=== PATIENT | female | born 1965 | race Hispanic/Latino ===

== ENCOUNTER 2017-12-10 01:53 | Day surgery (SDC) | payer OTHER ==
--- NOTE | 2017-12-10 02:33 | C.PDOC ---
History Of Present Illness 52 year old female presents to the ER with a complaint of left shoulder pain after she tripped and fell at approximately 21:00, landing on her left shoulder. Patient states she is currently unable to move the shoulder and feels some numbness to the left shoulder. Patient has been NPO since 14:00, patient did not take any meds [employer] and has no PMD. Patient denies any other injuries. Time Seen by Provider: 12/10/17 02:05 Chief Complaint (Nursing): Upper Extremity Problem/Injury History Per: Patient History/Exam Limitations: no limitations Onset/Duration Of Symptoms: Hrs Current Symptoms Are (Timing): Still Present Exacerbating Factor(s): Movement Recent travel outside of the [place]: No Past Medical History Reviewed: Historical Data, Nursing Documentation, Vital Signs Vital Signs: Last Vital Signs Temp 97 F L 12/10/17 06:56 Pulse 78 12/10/17 06:56 Resp 20 12/10/17 06:56 BP 134/83 12/10/17 06:56 Pulse Ox 100 12/10/17 06:56 Family History: States: Unknown Family Hx - Social History Hx Alcohol Use: Yes Hx Substance Use: No - Immunization History Hx Tetanus Toxoid Vaccination: No Hx Influenza Vaccination: No Hx Pneumococcal Vaccination: No Review Of Systems Except As Marked, All Systems Reviewed And Found Negative. Musculoskeletal: Positive for: Shoulder Pain Neurological: Positive for: Numbness Physical Exam - Physical Exam Appears: Non-toxic Skin: Normal Color, Warm, Dry, Other (Intact, No tenting) Head: Atraumatic, Normacephalic Eye(s): bilateral: Normal Inspection Oral Mucosa: Moist Chest: Symmetrical, No Tenderness Cardiovascular: Rhythm Regular Respiratory: Normal Breath Sounds, No Accessory Muscle Use Gastrointestinal/Abdominal: Soft, No Tenderness Extremity: Other (Flattening over left deltoid with internal rotation) Pulses: Left Radial: Normal, Right Radial: Normal Neurological/Psych: Oriented x3, Normal Speech ED Course And Treatment - Laboratory Results Result Diagrams: 12/10/17 03:44 12/10/17 03:44 ECG: Interpreted By Me ECG Rhythm: Sinus Rhythm Rate From EC O2 Sat by Pulse Oximetry: 99 (Room air) Pulse Ox Interpretation: Normal - Other Rad L SHOULDER X-Ray: Interpreted by Me (FX DISLOCATION) L HUMERUS X-Ray: Interpreted by Me (HUMERAL HEAD FX) - CT Scan/US L SHOULDER Other Rad Studies (CT/US): Radiology Report Reviewed (D/W [facility] ) Progress - Re-Evaluation Re-evaluation Note: 12/10/17 03:[address] LAIRD [employer]O [employer] S[facility]CE 25212/10/17 04:[address] LAIRD MULTIPLE MSGS W ANSWERING SERVICE 12/10/17 05:[address] LAIRD 12/10/17 05:33 D/W DR ALBERTO TRAUMA @ [facility]: REJECTS PT FOR TRANSFER, STATES TO SEND TO NEAREST TRAUMA CTR D/W [facility], REFUSING TRANSFER DUE TO CONCERN FOR EMTALA VIOLATION D/W DR TRINH WILL CONTACT DR MYERS 12/10/17 06:08 D/W DR LAIRD AWARE OF ER FINDINGS WILL REVIEW XRAY - Data Reviewed Data Reviewed: Diagnostic imaging, Old records - Continuity of Care Discussed patient case with:: Patient Medical Decision Making Medical Decision Making: Plan: * Left Humerus x-ray * Left shoulder x-ray * Morphine * Zofran Disposition Counseled Patient/Family Regarding: Studies Performed, Diagnosis - Disposition Disposition Time: 19:00 Condition: STABLE Forms: Vibes (Colombian) - POA Present On Arrival: Falls Or Trauma - Clinical Impression Clinical Impression: Shoulder fracture, Shoulder dislocation - Scribe Statement The provider has reviewed the documentation as recorded by the Scribe Emir Chao All medical record entries made by the Scribe were at my direction and personally dictated by me. I have reviewed the chart and agree that the record accurately reflects my personal performance of the history, physical exam, medical decision making, and the department course for this patient. I have also personally directed, reviewed, and agree with the discharge instructions and disposition. Physician Patient Turnover Patient Signed Over To: Chana Kim Handoff Comments: CONSCIOUS SEDATION W DR LAIRD FOR DISLOCATION FRACTURE, DISPO
[2017-12-10 03:48] LABS: BASO # 0.1 K/uL (0.0-0.2); BASO % 0.2 % (0.0-2.0); HEMOGLOBIN 14.1 g/dL (11.0-16.0); LYMPH # 1.1 K/uL (1.0-4.3); LYMPH % 5.2 % (20.0-40.0); MEAN CELL VOLUME 99.4 fL (81.0-99.0); MEAN CORPUSCULAR HEMOGLOBIN 34.6 pg (27.0-31.0); MEAN CORPUSCULAR HGB CONC 34.8 g/dL (33.0-37.0); MEAN PLATELET VOLUME 9.3 fL (7.2-11.7); MONO # 0.3 K/uL (0.0-0.8); MONO % 1.7 % (0.0-10.0); NEUT # 19.3 K/uL (1.8-7.0); NEUT % 92.9 % (50.0-75.0); PLATELET COUNT 426 K/uL (130-400); RBC 4.07 Mil/uL (3.80-5.20); RED CELL DISTRIBUTION WIDTH 13.2 % (11.5-14.5); WHITE BLOOD COUNT 20.8 K/uL (4.8-10.8)
[2017-12-10 03:59] LABS: PROTHROMBIN TIME 10.8 SECONDS (9.7-12.2)
[2017-12-10 04:03] LABS: CALCIUM 8.8 mg/dl (8.6-10.4); GFR AFRICAN-AMERICAN > 60; GFR NON-AFRICAN AMERICAN > 60
[2017-12-10 04:18] LABS: ALB/GLOB RATIO 1.2 (1.0-2.1); ALBUMIN 4.7 g/dL (3.5-5.0); ALT/SGPT 15 U/L (9-52); AST/SGOT 35 U/L (14-36); BLOOD UREA NITROGEN 8 mg/dL (7-17)
[2017-12-10] MEDS ORDERED: Morphine 4 MG/ML VIAL ONE (04:30)
[2017-12-10 05:32] LABS: BANDS 1 % (0-2); LYMPHOCYTE 8 % (20-40); MONOCYTE 3 % (0-10); NEUTROPHIL 88 % (50-75); PLATELET ESTIMATE NORMAL (NORMAL); TOTAL CELLS COUNTED 100
--- NOTE | 2017-12-10 06:01 | CT ---
EXAM: CT Left Upper Extremity Without Intravenous Contrast CLINICAL HISTORY: 52 years old, female; Injury or trauma; Fall; Initial encounter; Fracture, traumatic injury; Closed fracture; Humerus; Left; Injury date: 12-09-17 TECHNIQUE: Axial computed tomography images of the left upper extremity without intravenous contrast. All CT scans at this facility use one or more dose reduction techniques, viz.: automated exposure control; ma/kV adjustment per patient size (including targeted exams where dose is matched to indication; i.e. head); or iterative reconstruction technique. 705 images are submitted. 3-D reconstruction images are submitted. Coronal and sagittal reformatted images were created and reviewed. COMPARISON: No relevant prior studies available. FINDINGS: Bones/joints: There is acute comminuted displaced fracture left humeral greater tuberosity/head with anterior inferior dislocation of humeral head with respect to glenoid. The humeral head is locked medially behind the glenoid. This is seen on image 50 series 601 and on image 33 series 3. There is possible fracture of the glenoid labrum. The a.c. joint appears unremarkable. Soft tissues: Unremarkable. Lungs: There is left basilar infiltration. IMPRESSION: 1. There is acute comminuted displaced fracture left humeral greater tuberosity/head with anterior inferior dislocation of humeral head with respect to glenoid. 2. The humeral head is locked medially behind the glenoid. This is seen on image 50 series 601 and on image 33 series 3. 3. There is possible fracture of the glenoid labrum.
[2017-12-10 06:02] LABS: SQUAMOUS EPITHIAL 6 /hpf (0-5); URINE BACTERIA RARE (<OCC); URINE BILIRUBIN NEGATIVE (NEGATIVE); URINE BLOOD NEGATIVE (NEGATIVE); URINE CLARITY Hazy (Clear); URINE COLOR Yellow (YELLOW); URINE GLUCOSE (UA) NORMAL (Normal); URINE LEUKOCYTE ESTERASE TRACE Leu/uL (Negative); URINE PROTEIN 1+ mg/dL (NEGATIVE); URINE UROBILINOGEN NORMAL mg/dL (0.2-1.0)
[2017-12-10] MEDS ORDERED: Propofol 10 mg/ml Inj (20 ML) ONE ×2 (06:55→10:18)
[2017-12-10] MEDS ORDERED: DiphenhydrAMINE 50 mg/ml Inj ONE (07:25)
[2017-12-10] MEDS ORDERED: diaZEpam 10 mg/2 ml Inj IVP STA (07:32)
[2017-12-10] MEDS ORDERED: Ketamine 50 mg/ml Inj (10 ml) ONE (07:32)
--- NOTE | 2017-12-10 08:50 | RAD ---
PROCEDURE: Radiographs of the Left Shoulder HISTORY: LEFT SHOULDER/ FELL COMPARISON: No prior. FINDINGS: BONES: Hill-Sachs deformity. Comminuted fracture of the greater tuberosity. JOINTS: Anterior shoulder dislocation. SOFT TISSUES: Normal. OTHER FINDINGS: None. IMPRESSION: Anterior shoulder dislocation with Hill-Sachs deformity and comminuted fracture of the greater tuberosity.
--- NOTE | 2017-12-10 08:51 | RAD ---
PROCEDURE: Radiographs of the left humerus. HISTORY: FELL COMPARISON: None. FINDINGS: BONES: Comminuted fracture of the greater tuberosity. SOFT TISSUES: Normal. OTHER FINDINGS: Anterior shoulder dislocation. IMPRESSION: Anterior shoulder dislocation with comminuted fracture of the greater tuberosity.
--- NOTE | 2017-12-10 08:58 | RAD ---
PROCEDURE: Radiographs of the Left Shoulder HISTORY: postreduction COMPARISON: 12/10/2017 at 2:06 a.m. FINDINGS: BONES: Status post close reduction left glenohumeral dislocation. There is displaced curvilinear greater tuberosity fracture. No other fracture identified on this examination. JOINTS: Acromioclavicular articulation intact. SOFT TISSUES: Normal. OTHER FINDINGS: None. IMPRESSION: Successful close reduction left glenohumeral the anterior dislocation. Mildly displaced curvilinear greater tuberosity fracture noted.
--- NOTE | 2017-12-10 08:59 | RAD ---
PROCEDURE: CHEST RADIOGRAPH, 1 VIEW HISTORY: preop COMPARISON: None available. FINDINGS: LUNGS: Clear. PLEURA: Elevation of the left hemidiaphragm. No pneumothorax or pleural fluid seen. CARDIOVASCULAR: Right hilar and upper mediastinal prominence. Cardiomediastinal silhouette otherwise within normal limits. OSSEOUS STRUCTURES: Comminuted fracture of the left greater tuberosity. VISUALIZED UPPER ABDOMEN: Normal. OTHER FINDINGS: None. IMPRESSION: Right hilar and right upper mediastinal prominence. Correlation with prior imaging is recommended, if available. Alternatively, contrast-enhanced CT scan of the chest can be obtained for further evaluation.
[2017-12-10] MEDS ORDERED: ceFAZolin 1 gm in NS 0 GM/0 ML BAG IVPB ONE (09:01)
[2017-12-10] MEDS ORDERED: EPINEPHrine 1:1000 Nasal Sol(30mL) ONE (09:01)
[2017-12-10] MEDS ORDERED: Lidocaine/Epinephrine 1% 1:100000 10 ML IJ ONE (09:01)
[2017-12-10] MEDS ORDERED: Succinylcholine Chloride 20 mg/ml Syr (5 ml) IV ONE (10:18)
[2017-12-10] MEDS ORDERED: Rocuronium 10 mg/ml (10 ml) ONE (10:18)
[2017-12-10] MEDS ORDERED: Midazolam 2 MG/2 ML VIAL ONE (10:18)
[2017-12-10] MEDS ORDERED: Lidocaine Hydrochloride 5 ML INJ ONE (10:18)
[2017-12-10] MEDS ORDERED: Clindamycin 600mg/50ml NS 600 MG/50 ML BAG IVPB ONE (10:33)
[2017-12-10] MEDS ORDERED: Neostigmine Methylsulfate 3mg/3ml Syringe IV ONE (13:23)
--- NOTE | 2017-12-10 13:28 | CON ---
DATE: 12/10/2017. REASON FOR CONSULTATION: Left shoulder proximal fracture with dislocation. HISTORY OF PRESENT ILLNESS: This is a 52-year-old right-hand dominant female who sustained a slip and fall landing on her outstretched hand while walking on the outside. The patient had difficulty using her arm, was able to drive home. The pain continued to increase. She came to [facility]. In the emergency room, the patient underwent x-rays and was diagnosed with anterior shoulder fracture dislocation with greater tuberosity fracture. I was consulted for further evaluation and treatment. The patient denied any numbness or paresthesia in her arm. SOCIAL HISTORY: The patient works as a business support specialist. PAST MEDICAL HISTORY: Eczema. PHYSICAL EXAMINATION: LEFT SHOULDER: Skin is intact. There is tenderness over the proximal shoulder with difficulty with forward flexion or external rotation. The patient has active flexion and extension of her elbow, wrist. Neurovascularly intact. RIGHT SHOULDER: Full range of motion. No instability. No pain. X-rays of the left shoulder were seen and reviewed, showed anterior fracture and dislocation of the proximal humerus with greater tuberosity fracture and displacement. CT scan confirmed the above findings, which showed anterior inferior shoulder dislocation with fracture of the greater tuberosity. ASSESSMENT: Left shoulder anterior fracture dislocation with greater tuberosity fracture. PLAN: I had a long discussion with the patient on the above findings. At this time, the patient was indicated for closed reduction with sedation. Informed consent was obtained. The patient was administered conscious sedation under monitor by the ER physician. Once the patient was sedated, I performed closed reduction of the shoulder. Reduction was performed with traction and countertraction of the shoulder and manipulation. The shoulder joint was able to be reduced. Post reduction examination revealed highly unstable shoulder with dislocation at about 30 degrees of abduction and 75 degrees of external rotation. A shoulder immobilizer was placed. Post reduction films confirmed the reduced shoulder joint; however, there was still displaced greater tuberosity fracture. I explained the above findings to the patient and at this time. She has a highly unstable shoulder joint and will require invasive fixation. I recommended the patient to be taken to the operating room for fixation of her fracture. This will include left shoulder arthroscopy for bankart repair and mini open, proximal greater tuberosity fracture fixation. Risks and benefits of the procedure were explained. Risks included but not limited to bleeding, infection, tendon, nerve, vessel injury, instability, chronic pain, potential need for additional surgery in the future. Patient understands the above risks and elected to proceed. She was taken to the operating room for the above procedure. Porfirio Oliver MD [facility]
--- NOTE | 2017-12-10 13:38 | PCM.SURG1 ---
Surgeon's Initial Post Op Note - Surgeon's Notes Surgeon: dheeraj Intermediate Frame Tender: jareth Type of Anesthesia: General Endo Pre-Operative Diagnosis: L shoulder fx dislocation Operative Findings: see dictation Post-Operative Diagnosis: greater tuberosity fx, bankart, rotator cuff tear, dislocation Operation Performed: arthroscopic bankart repair, open rotator cuff repair Specimen/Specimens Removed: none Estimated Blood Loss: EBL {In ML}: 50 Date of Surgery/Procedure: 12/10/17 Time of Surgery/Procedure: 10:00
--- NOTE | 2017-12-10 14:09 | RAD ---
PROCEDURE: Radiographs of the Left Shoulder HISTORY: post op COMPARISON: Left shoulder radiograph performed approximately 6 hours prior FINDINGS: The examination is limited as only one view was provided. Calcific fragment is seen adjacent to the greater tuberosity. The glenohumeral articulation cannot be adequately assessed. Subcutaneous emphysema in the left shoulder soft tissues is likely related to reported postsurgical changes. IMPRESSION: Findings as above.
[2017-12-10] MEDS: HYDROmorphone 0.5 mg/0.5 ml ISec IVP PRN ×2 (14:21→14:31)
[2017-12-10] MEDS ORDERED: Bupivacaine HCl 0.5% PF (10 ml) Inj ONE ×2 (14:54)
--- NOTE | 2017-12-10 15:17 | PCM.ANESB1 ---
Interscalene Block - Brachial Plexus Date of Procedure: 12/10/17 Anesthesiologist: Santa Pre-Procedure Diagnosis: Left shoulder fx, s/p ORIF Post-Procedure Diagnosis: same Procedure Performed: Interscalene Block of Brachial Plexus Left - Procedure Interscalene Block of Brachial Plexus: This procedure was explained to the patient that it is for post-operative pain management. Consent was obtained after a thorough discussion with the patient regarding the benefits and possible complications of local anesthetic block of the Brachial Plexus at the Interscalene area. The patient was brought to the Operating Room and standard monitors were applied. Time out was held with the circulating nurse to confirm the correct surgery and appropriate block. After applying Oxygen by nasal cannula and administering IV Sedation, the patient's head was gently rotated away from the _left operative shoulder and the anterior scalene groove was carefully palpated. The ultrasound transducer was then applied to the skin in the transverse plane and the brachial plexus was visualized lateral to the carotid artery and in between the anterior and middle scalene muscles. After identification,the anterior lateral portion of the neck was prepped with Betadine solution three times and Lidocaine 1% was injected subcutaneously for topical analgesia. At this point, a # 22 gauge Stimuplex 2 inches insulated needle was inserted into the interscalene groove and directed in a caudal and midline direction. The needle was inserted lateral to the ultrasound transducer in-plane towards the brachial plexus in a [id number] direction. Needle advancement was performed carefully under direct ultrasound visualization. Nerve stimulator was used and twitched of the affected extremity including the hand brachialis muscles, biceps and the deltoid was obtained at a current of __0.3___MA. After repeated negative aspiration,__5___cc of__0.5% ___,_Bupivacaine were injected and this was followed with _25____cc of _0.5____% ___Bupivacaine__ . Under ultrasound guidance the local anesthetics were observed surrounding the roots of the brachial plexus. The needle was removed intact and sterile dressing was applied. The patient had stable vital signs, was conscious and in no apparent distress. The patient tolerated the interscalene block of the bracheal plexus well with stable vital signs and was prepared for subsequent surgery.
[2017-12-10] MEDS: Lactated Ringer's 1,000 ML IV SCH (20:36)
[2017-12-10] MEDS ORDERED: Morphine 4 MG/ML VIAL IVP PRN (21:01)
[2017-12-10] MEDS: Oxycodone/Acetaminophen 5/325 mg Tab PO PRN (21:28)
[2017-12-11] MEDS: Lactated Ringer's 1,000 ML IV SCH ×3 (03:24→11:18)
[2017-12-11] MEDS: Oxycodone/Acetaminophen 5/325 mg Tab PO PRN ×2 (04:25→12:36)
[2017-12-11 09:42] VITALS: O2SAT 95
[2017-12-11 16:20] VITALS: BP 123/72; PULSE 73; RESP 18; TEMP 98.6
--- NOTE | 2017-12-11 16:21 | CP.PCM.PN ---
Subjective - Date & Time of Evaluation Date of Evaluation: 12/11/17 Time of Evaluation: 15:45 - Subjective Subjective: SENIOR TECHNICAL PROGRAM MANAGER NOTES 52 yr old female with L Shoulder fracture, Shoulder dislocation s/p arthroscopic bankart repair open rotator cuff repair POD #2 D/W Dr. Schultz patient can be discharged home today and f/u with Dr. Schultz office in 2 weeks Patient has fx and surgery, and pain controlled with percocet, we will discharge patient home with 5 days supply of percocet . The adverse effects/ addiction discussed with patient Objective - Vital Signs/Intake and Output Vital Signs (last 24 hours): Temp Pulse Resp BP Pulse Ox 99.2 F 90 20 107/70 95 12/11/17 13:52 12/11/17 09:41 12/11/17 09:41 12/11/17 09:41 12/11/17 09:41 Intake and Output: 12/11/17 12/11/17 06:59 18:59 Intake Total 1380 Balance 1380 - Medications Medications: Current Medications Lactated Ringer's (Lactated Ringer's) 1,000 mls @ 150 mls/hr IV .Q6H40M [facility] Last Admin: 12/11/17 11:18 Dose: Not Given Morphine Sulfate (Morphine) 4 mg IVP Q4 PRN PRN Reason: Pain, severe (8-10) Oxycodone/Acetaminophen (Percocet 5/325 Mg Tab) 2 tab PO Q4H PRN PRN Reason: Pain, moderate (4-7) Stop: 12/13/17 20:43 Last Admin: 12/11/17 12:36 Dose: 2 tab - Labs Labs: 12/10/17 03:44 12/10/17 03:44 PT 10.8 SECONDS (9.7-12.2) 12/10/17 03:44 INR 1.0 12/10/17 03:44 APTT 26 SECONDS (21-34) 12/10/17 03:44
--- NOTE | 2017-12-11 22:52 | OP ---
PROCEDURE DATE: 12/10/2017 SURGEON: Porfirio Oliver MD [employer]ER: Rain Garvin MD. PREOPERATIVE DIAGNOSES: 1. Left shoulder anterior dislocation. 2. Left shoulder greater tuberosity fracture. 3. Left shoulder supraspinatus rotator cuff tear. POSTOPERATIVE DIAGNOSES: 1. Left shoulder anterior dislocation. 2. Left shoulder greater tuberosity fracture. 3. Left shoulder supraspinatus rotator cuff tear, full thickness. 4. Left shoulder anterior Bankart tear 5. Left shoulder joint loose body. 6. Left shoulder extensive synovitis. 7. Proximal biceps partial tear PROCEDURES: 1. Arthroscopic Bankart repair with Arthrex PushLock anchors, 40242. 2. Open rotator cuff repair, double row fixation, 73635. 3. Open reduction of the shoulder and internal fixation of the greater tuberosity fracture piece, 10683. 4. Arthroscopic loose body removal, 88011. 5. Arthroscopic left shoulder synovectomy complete, 07432. 6. Arthroscopic proximal biceps tenotomy 89649 6. Left shoulder arthroscopic and open debridement involving the joint muscle and bone, 33826. ANESTHESIA: General and postoperative regional block. ESTIMATED BLOOD LOSS: 100 mL. SPECIMENS: None. DRAINS: None. COMPLICATIONS: None. General anesthesia was obtained. The patient was correctly identified in the holding area, and the left shoulder was marked with the surgeon's initials. The patient was transported to the operating room and placed in the supine position and general anesthesia was obtained. A preoperative orthopedic examination revealed dislocated shoulder. The shoulder was highly unstable post reduction and revealed anterior instability. It was unstable at about 30 deg abduction and 45 external rotation. The patient was then placed in a beach chair position utilizing the beach chair positioning device. The patients head was stabilized and the indicated upper extremity was prepped and draped in the standard surgical fashion. The anatomic structures were outlined with a skin marker, and 1% lidocaine with epinephrine was injected into the posterior, anterior, and lateral portal areas. A #21-gauge spinal needle was placed in the glenohumeral joint from the posterior portal and 10 cc of sterile saline was injected into the glenohumeral joint. Return of fluid indicated correct needle placement into the joint. The needle was then withdrawn and a #11 blade was used to make a 1cm incision at the posterior portal site. Next, the arthroscopic blunt trocar was inserted into the glenohumeral joint. A #21-gauge spinal needle was placed through the anterior rotator interval, and the anterior portal was made with a #11 blade after the spinal needle was withdrawn. A 7-mm cannula was then inserted after the skin incision was made and the arthroscopic probe was then used to examine the internal structures of the glenohumeral joint. With the shoulder abducted and externally rotated position, the articular surface of the rotator cuff was visualized. The arthroscope and probe were then switched from posterior to anterior. The posterior labrum, posterior capsule, and biceps anchor reflection was then inspected with the arthroscope in the anterior portal position. Examination of the glenohumeral joint revealed 1. Extensive synovitis. 2. Proximal biceps tear. 3. Anterior interior bony Bankart lesion. 4. Loose body of the glenohumeral joint. 5. Full-thickness supraspinatus tendon tear. 6. Greater tuberosity fracture with displacement. The full radius shaver was used to mechanically debride loose chondral edges of the labrum to a stable border. Extreme care was taken to not disrupt the adjacent chondral surface. The edge of the debrided area was probed to ensure chondral stability. Upon careful arthroscopic evaluation of biceps tendon and its anchor site at the labrum, it was noted to be highly frayed and tears not amenable to repair. Due to tissue quality and patient's age, decision was made to proceed with biceps tenotomy. Using arthroscopic scissors, biceps tenotomy was successfully performed. The loose edges of labrum were debrided using radiofrequency probe and arthroscopic shaver. Excessive glenohumeral synovitis was cleared with a 4.0 mm full radius shaver. The hypertrophic, erythematous synovium was resected. Hemostasis was maintained with the radiofrequency device. At this point, the anterior-inferior glenoid labral tear was addressed. An additional trans-subscapular portal was made with spinal needle localization, and a 7-mm cannula was inserted to obtain the correct angle for implant placement. Using an arthroscopic rasper, the glenoid surface was denuded down to bleeding bone. A suture lasso passer was used to pass two #2 FiberTape sutures were through the anterior inferior labrum. An Arthrex PushLock bioabsorbable anchor was inserted using the standard technique at the 5 o'clock position after the inferior sutures were threaded through the end of the device. Proper anterior and inferior capsular tension was achieved, and the device was firmly impacted into the glenoid using a mallet. This technique was used for the superior implant as well. The shoulder was put through a range of motion, and anterior stability was confirmed by the absence of a drive through sign was well as with an arthroscopic drawer test. Sub-Acromial Space At this point, the arthroscope was withdrawn from the glenohumeral joint and subacromial space was then entered using a blunt trocar. Gentle resistance sweeping against the coracoacromial ligament confirmed proper placement of the sheath and the arthroscope was inserted. A 1-cm incision was made at the inferolateral acromial area to create the lateral portal. Examination of the subacromial space revealed: 1. Subacromial bursitis. 2. Synovitis. 3. full thickness supraspinatus tendon tear. 4. greater tuberosity multi fragmanted fx Visualization of the subacromial space was difficult due to excessive bursitis. A bursectomy was performed using a combination of radiofrequency device as well as a 4.0-mm full radius motorized shaver. The joint was copiously irrigated. The arthroscopic instruments were removed and the wound was closed with 4-0 nylon suture. Next, the attention was made to perform the open approach to the shoulder. A lateral approach was outlined over the acromion and lateral deltoid. Incision was made through the skin about 6 cm in length. Dissection was carried down bluntly to identifying the deltoid fascia. The deltoid fascia was identified and the anterior deltoid raphae was split bluntly. Deep dissection was carried down and the remaining bursa was identified. Bursectomy was performed, followed by identification of rotator cuff and the fracture. There was a greater tuberosity fracture was multifragmented, fully displaced. THe fracture fragment pieces, and rotator cuff was debrided with rongeur, curettes, and irrigation. The bone muscle and skin were all debrided. Work was then begun on performing an open double row rotator cuff repair. The lateral margin of the rotator cuff were debrided to a smooth and stable tendon surface. Two 4.5 mm Arthrex Corkscrew suture anchors were placed into the proximal humerus bone. The sutures were then passed through the supraspinatus and greater tuberosity fracture piece together in a mattress suture configuration. A total of 2 anchors were used for the proximal row and 4 suture limbs for each anchor was used to secure the rotator cuff with greater tuberosity fracture piece. These anchors formed the medial row of the double row repair. The arm was then abducted to 70 degrees and the leaving edge of the curve was drawn into its proper insertion with the greater tuberosity. The #2 FibreWire mattress sutures were tied with a locking knot tying technique. After tying all the sutures, the remaining suture limbs were secured to the proximal humerus and the tuberosity with two 4.5 mm PushLock absorbable anchors. There were placed in the standard technique to the lateral aspect of the greater tuberosity approximately 1 cm to 2 cm lateral to the medial row anchors. The shoulder was then put through passive range of motion and rotator cuff was noted to be stable through range of motion of 130/50 degrees. No prominence of the suture knots or the rotator cuff tissue was noted to impinge through any abduction and internal rotation. The wound was then irrigated and closed with 2-0 Vicryl followed by 3-0 Monocryl. Sterile dressing was applied consistent with Xeroform, 4x4, and Tegaderm. The patient was placed in to the abduction sling and was admitted to the hospital for observation. During the procedure, I was assisted by Dr. Rain Garvin, a licensed board certified orthopedic surgeon. His assistance was needed for proper patient positioning as well as assisting me during the operative procedure by performing critical surgical steps. The presence of Dr. Garvin was medically necessary to ensure the utmost safety of the patient in the pre, intra, and postoperative periods. Porfirio Oliver MD [facility]
--- NOTE | 2017-12-12 11:00 | CARD ---
APPROVED REPORT EKG Measurement Heart [id number] <Conclusion> Normal sinus rhythm Normal ECG
--- NOTE | 2017-12-12 11:01 | CARD ---
APPROVED REPORT EKG Measurement Heart [id number] <Conclusion> Normal sinus rhythm Possible Left atrial enlargement Borderline ECG
== END 2017-12-11 17:04 | disposition home or self-care (01) ==
LOC: C.ER 01:53 → C.SDS 08:41 → C.6T 14:03 → C.SDS 12-11 17:04
PROVIDERS: ATTEND Orthopaedic Surgery
DX: S42.252A Displaced fracture of greater tuberosity of left humerus, initial encounter for closed fracture (principal); W01.0XXA Fall on same level from slipping, tripping and stumbling without subsequent striking against object, initial encounter; S46.012A Strain of muscle(s) and tendon(s) of the rotator cuff of left shoulder, initial encounter; S43.015A Anterior dislocation of left humerus, initial encounter; M24.012 Loose body in left shoulder; M65.812 Other synovitis and tenosynovitis, left shoulder; S46.212A Strain of muscle, fascia and tendon of other parts of biceps, left arm, initial encounter; M75.52 Bursitis of left shoulder; F17.200 Nicotine dependence, unspecified, uncomplicated
CPT/HCPCS: 11012; 23410; 23440; 23665; 23670; 29806; 29819; 29820; 29822; 64415; 71045; 73020; 73030; 73060; 73200; 80053; 81001; 84703; 85025; 85610; 85730; 86850; 86900; 93005; 96374; 96375; 96376; 99285; C1713; J1170; J2250; J2270; J2405; J2704; J2710; J3010; J3360; J7120